=== PATIENT | male | born 1980 | race Caucasian/White ===

== ENCOUNTER 2019-05-02 01:12 | Emergency (ER) | payer SELFPAY ==
[~2019-05-02] VITALS: Ht 170.2 cm; Wt 90.0 kg
[2019-05-02] MEDS ORDERED: TETRACAINE 0.5% OPHTH DROPS 4ML BOTHEYE ONE (01:45)
[2019-05-02] MEDS ORDERED: FLUORESCEIN SODIUM 1MG/STRIP BOTHEYE ONE (01:45)
[2019-05-02 01:50] VITALS: BP 156/97
[2019-05-02] MEDS ORDERED: GENTAMICIN 0.3% OPHTH DROPS 5ML BOTHEYE ONE (02:30)
== END 2019-05-02 03:41 | disposition home or self-care (01) ==
LOC: ER 01:12
DX: H57.89 Other specified disorders of eye and adnexa (principal); H57.12 Ocular pain, left eye
CPT/HCPCS: 70486; 99284